=== PATIENT | male | born 1950 | race Two or more races ===

== ENCOUNTER 2018-06-02 14:16 | Emergency (ER) | payer SELFPAY ==
[~2018-06-02] VITALS: Ht 177.8 cm; Wt 100.0 kg
[2018-06-02 14:24] VITALS: BP 181/76
== END 2018-06-02 15:26 | disposition home or self-care (01) ==
LOC: ER 14:16
DX: G51.0 Bell's palsy (principal); I10 Essential (primary) hypertension; E11.9 Type 2 diabetes mellitus without complications
CPT/HCPCS: 99283